=== PATIENT | male | born 1955 | race Caucasian/White ===

== ENCOUNTER 2022-07-16 06:49 | Day surgery (SDC) | payer MEDICARE, MEDICAID ==
[~2022-07-16 06:49] MED LIST: Bupivacaine 0.5% 30 ML SDV ONE
[2022-07-16 07:15] VITALS: BP 151/62; PULSE 89
[2022-07-16] MEDS ORDERED: Lactated Ringers 1,000 ML IV SCH (07:15)
[2022-07-16] MEDS ORDERED: Nozin Nasal Sanitizer NASBOTH ONE (07:30)
[2022-07-16] MEDS ORDERED: ceFAZolin 2 GM in Sodium Chloride 0.9% 50 ML IV ONE (08:00)
== END 2022-07-16 07:30 | disposition home or self-care (01) ==
LOC: JP.SDS 06:49
PROVIDERS: ATTEND Specialist
DX: M67.442 Ganglion, left hand (principal); Z53.09 Procedure and treatment not carried out because of other contraindication
CPT/HCPCS: 36415; 80048; 85025; A9270-GY; J3490; J7120

== ENCOUNTER 2023-07-20 11:36 | Emergency (ER) | payer MEDICAID, MEDICARE, OTHER ==
[2023-07-20 12:24] VITALS: BP 169/95; PULSE 96
[2023-07-20] MEDS: Methocarbamol 500 MG Tab PO ONE (13:22)
== END 2023-07-20 13:46 | disposition home or self-care (01) ==
LOC: JP.ED 11:36
DX: R20.2 Paresthesia of skin (principal); I10 Essential (primary) hypertension
CPT/HCPCS: 99283; A9270